=== PATIENT | female | born 1935 | race Caucasian/White ===

== ENCOUNTER → 2016-05-29 | Day surgery (SDC) | payer MEDICARE, OTHER ==
[~2016-05-29] MED LIST: Lactated Ringers 1,000 ML IV SCH; Propofol 200 MG/20 ML SDV IV ONE
[2016-05-29 08:19] VITALS: BP 153/70
--- NOTE | 2016-05-29 13:07 | OR ---
DATE OF OPERATION: 05/29/2016 PREOPERATIVE DIAGNOSIS: POSITIVE COLOGUARD. POSTOPERATIVE DIAGNOSIS: POSITIVE COLOGUARD. SURGEON: Facundo Zamudio MD PROCEDURE: FULL-LENGTH COLONOSCOPY. 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 COMPLICATIONS: None. SPECIMEN: None. FINDINGS: 1. Full-length colonoscopy. 2. Mild sigmoid diverticulosis. RECOMMENDATIONS: Routine follow up with Dr. Plummer. INDICATIONS: The patient has never had a colonoscopy or at least since she has been very young. She took a Cologuard at home and was positive. Dr. Plummer sent her for a colonoscopy. DESCRIPTION OF PROCEDURE: The patient was prepped and draped, placed in a left lateral decubitus position. A lubricated Olympus colonoscope was inserted and easily advanced to the cecum. Direct visualization of the ileocecal valve and appendiceal orifice was accomplished. The bowel prep was excellent. Upon withdrawal of the scope throughout the entire length of the colon, I found no signs of any polyps, mass, ulceration, or bleeding sites. No signs of any cancer. The patient had a few scattered diverticula in the distal sigmoid colon up to the rectosigmoid junction. The rectal vault was unremarkable. Retroflexion of the scope and the rectum showed no anal lesions. Air was then suctioned and the scope was then removed without complications. JUAN M/SHANNAN /[id number]
== END ==
LOC: CC.SDS 06:21
PROVIDERS: ATTEND Family Medicine
DX: K57.30 Diverticulosis of large intestine without perforation or abscess without bleeding (principal); Z88.1 Allergy status to other antibiotic agents
CPT/HCPCS: 36415; 45378; 85610; J2704; J7120; 00810

== ENCOUNTER → 2016-09-28 | Day surgery (SDC) | payer MEDICARE, OTHER ==
[~2016-09-28] MED LIST changes: +Acetaminophen/HYDROcodone 325-5 MG Tab PO PRN; +Bupivacaine 0.25% 10 ML SDV INJECT ONE; +Dexamethasone 4 MG/ML SDV IV ONE; +Doxycycline 100 MG in Sodium Chloride 0.9% 100 ML IV ONE; +Enalaprilat 1.25 MG/ML SDV IVPUSH ONE; +Glycopyrrolate 0.2 MG/ML SDV IVPUSH ONE; +LORazepam 0.5 MG Tab PO PRN; -Lactated Ringers 1,000 ML IV SCH; +Lactated Ringers 1,000 ML ONE; +Lidocaine 2% 20 ML MDV INJECT ONE; +Midazolam 1 MG/ML 2 ML SDV IV ONE; +Morphine 2 MG/ML Syringe ONE; +Morphine 4 MG/ML Syringe IVPUSH PRN; +Neostigmine Methylsulfate 10 MG/10 ML MDV IV ONE; +Ondansetron 4 MG/2 ML SDV IV ONE; +Ondansetron 4 MG/2 ML SDV IVPUSH PRN; +Rocuronium 50 MG/5 ML Vial IV ONE; +fentaNYL 100 MCG/2 ML SDV IV ONE; +hydrALAZINE 25 MG Tab PO ONE
--- NOTE | 2016-09-28 13:54 | PCM.PN ---
- General Info Date of Service: 09/28/16 Admission Dx/Problem (Free Text): Called to PAR patient with persistant HTN in 210/75 range with HR 50 range. Is awake and oriented. Pain medication given in attempt to decrease B/P non responsive HTN persists. Hydalazine 25 mg given po stat with minimal improvement. DIscussed with Pharmacist and advised IV Vasotec 1.25 mg IVSP over 5 mins. Patient awake and ACEVEDO -O2 discontinued. Plexipulse continue. Pain scale 3-range. Functional Status: Reports: Pain Controlled - Review of Systems General: Reports: No Symptoms HEENT: Reports: No Symptoms Pulmonary: Reports: No Symptoms Cardiovascular: Reports: Other (HTN) Gastrointestinal: Reports: Other (Dressing dry and intact) Genitourinary: Reports: No Symptoms Musculoskeletal: Reports: Other (ACEVEDO plexipulse intact) Skin: Reports: No Symptoms Neurological: Reports: No Symptoms Psychiatric: Reports: No Symptoms - Patient Data Vitals - Most Recent: Last Vital Signs Temp 97 C H 09/28/16 12:50 Pulse 48 L 09/28/16 13:00 Resp 16 09/28/16 13:00 BP 215/70 H 09/28/16 13:00 Pulse Ox 100 09/28/16 13:00 Weight - Most Recent: 61.235 kg Lab Results Last 24 Hours: Laboratory Results - last 24 hr 09/28/16 Range/Units 09:57 PT 10.9 (9.7-12.3) SEC INR 1.01 (0.92-1.18) Med Orders - Current: Current Medications Hydrocodone Bitart/Acetaminophen ([place] 325-5 Mg) 2 tab PO Q4H PRN PRN Reason: Pain (moderate 4-6) Enalaprilat (Vasotec Iv) 1.25 mg IVPUSH ONETIME ONE Stop: 09/28/16 13:49 Morphine Sulfate (Morphine) 3 mg IVPUSH Q1H PRN PRN Reason: Pain (severe 7-10) Ondansetron HCl (Zofran) 4 mg IVPUSH Q6H PRN PRN Reason: Nausea/Vomiting Discontinued Medications Bupivacaine HCl (Sensorcaine-Mpf 0.25%) 2 ml INJECT .STK-MED ONE Stop: 09/28/16 11:01 Last Admin: 09/28/16 11:00 Dose: 2 ml Hydralazine HCl (Apresoline) 25 mg PO ONETIME ONE Stop: 09/28/16 13:00 Lactated Ringer's (Ringers, Lactated) Confirm Administered Dose 1,000 mls @ as directed .ROUTE .STK-MED ONE Stop: 09/28/16 09:46 Last Admin: 09/28/16 09:50 Dose: 1,000 ml Doxycycline Hyclate 100 mg/ (Sodium Chloride) 100 mls @ 100 mls/hr IV ONETIME ONE Stop: 09/28/16 10:32 Last Admin: 09/28/16 10:03 Dose: 100 mls/hr Lidocaine HCl (Xylocaine 2%) 8 ml INJECT .STK-MED ONE Stop: 09/28/16 11:01 Last Admin: 09/28/16 11:00 Dose: 8 ml Morphine Sulfate (Morphine) Confirm Administered Dose 4 mg .ROUTE .STK-MED ONE Stop: 09/28/16 12:33 Last Admin: 09/28/16 12:43 Dose: 3 mg - Exam Quality Assessment: Supplemental Oxygen (Discontinued saturations 100%) General: Alert, Cooperative, No Acute Distress, Sedated HEENT: Pupils Equal, Pupils Reactive, EOMI Neck: Supple Lungs: Clear to Auscultation, Normal Respiratory Effort Cardiovascular: Regular Rhythm, Bradycardia, Other (HTN) GI/Abdominal Exam: Soft (Female) Exam: Deferred Back Exam: Normal Inspection Extremities: Normal Inspection Peripheral Pulses: 2+: Carotid (L), Carotid (R), Brachial (L), Brachial (R), Radial (L), Radial (R), Femoral (L), Femoral (R), Dorsalis Pedis (L), Dorsalis Pedis (R) Skin: Warm, Dry, Intact Wound/Incisions: Dressing Dry and Intact, No Drainage. No: Erythema Neurological: No New Focal Deficit Psy/Mental Status: Alert, Normal Affect - Problem List Review Problem List Initiated/Reviewed/Updated: Yes - My Orders Last 24 Hours: My Active Orders 09/28/16 13:48 Enalaprilat [Vasotec IV] 1.25 mg IVPUSH ONETIME ONE - Assessment Assessment:: HTN-Bradycardia Post operative Cholecystectomy - Plan Plan:: Close observation. Will monitor B/P closely. Repeat Vasotec 1.125 mg IV in 1 hour if HTN persists. notified by PAR.
[2016-09-29 07:39] VITALS: BP 163/82
--- NOTE | 2016-09-29 08:46 | OR ---
DATE OF OPERATION: 09/28/2016 PREOPERATIVE DIAGNOSIS: CHRONIC CHOLECYSTITIS WITH CHOLELITHIASIS. POSTOPERATIVE DIAGNOSIS: CHRONIC CHOLECYSTITIS WITH CHOLELITHIASIS. SURGEON: Sami Ricks MD PROCEDURE: LAPAROSCOPIC CHOLECYSTECTOMY. ANESTHESIA: General. DESCRIPTION OF PROCEDURE: After the patient was anesthetized satisfactorily, the patient's abdomen was prepped with iodoform. The patient was given sterile drapes. A small skin incision was made in the midline. It was carried down through skin and subcutaneous tissue and down through deep fascia. Deep fascia and peritoneum were opened. An 11 mm blunt trocar was introduced. CO2 gas was insufflated. Under direct camera vision. Another 11 mm trocar was introduced in the subxiphoid space and a 5 mm in the right upper quadrant. Gallbladder was held in position. There were quite a few adhesions which were taken down. Then dissection was done. Both cystic duct and cystic artery were exposed. Junction of the cystic duct with common bile duct and gallbladder was exposed. Both of them were clipped and divided. Then gallbladder was taken off its bed with help of hook cautery and removed from the peritoneal cavity using Endopouch. Hemostasis was satisfactory. Then CO2 gas was desufflated out. Deep fascia was closed with zero Ethibond running sutures. Skin was closed with ruby. The patient was given sterile dressing. She tolerated the procedure well and left the operating room in satisfactory condition. SHIRLEY/SHANNAN /[id number]
== END ==
LOC: CC.SDS 09:13
PROVIDERS: ATTEND Surgery
DX: K81.1 Chronic cholecystitis (principal); F41.9 Anxiety disorder, unspecified; I10 Essential (primary) hypertension; E78.5 Hyperlipidemia, unspecified; E55.9 Vitamin D deficiency, unspecified; Z88.1 Allergy status to other antibiotic agents; Z88.8 Allergy status to other drugs, medicaments and biological substances; Z79.899 Other long term (current) drug therapy; Z79.01 Long term (current) use of anticoagulants; Z98.890 Other specified postprocedural states
CPT/HCPCS: 36415; 47562; 85610; A9270; J1100; J2250; J2270; J2405; J2704; J2710; J3010; J7050; J7120; 00790; 88304

== ENCOUNTER 2017-07-14 16:20 | Observation (INO) | payer MEDICARE, OTHER ==
[2017-07-14] MEDS ORDERED: Sodium Chloride 0.9% 10 ML Syringe FLUSH PRN (16:35)
[2017-07-14 17:02] LABS: O2 DELIVERY DEVICE ROOM AIR
[2017-07-14 17:05] LABS: BICARBONATE,ARTERIAL 28.4 mm/L (22.0-26.0); O2 SATURATION ARTERIAL 96 % (95-98); PCO2 ARTERIAL 40 mm/Hg0 (35-45); PO2 ARTERIAL 77 mm/Hg (80-100)
[2017-07-14 17:29] LABS: CHLORIDE,CL 103 mEq/L (98-106); SODIUM,NA 143 mEq/L (136-145)
[2017-07-14] MEDS ORDERED: LORazepam 0.5 MG Tab PO PRN (17:45)
[2017-07-14] MEDS ORDERED: Warfarin 2.5 MG Tab PO SCH (17:45)
[2017-07-14] MEDS: Propranolol 10 MG Tab PO SCH (19:44)
[2017-07-14] MEDS ORDERED: Temazepam 15 MG Cap PO ONE (23:44)
[2017-07-15] MEDS ORDERED: [UNRECOGNIZED DRUG - REMARK] PO SCH (08:00)
[2017-07-15] MEDS ORDERED: Warfarin 5 MG Tab PO SCH (08:00)
[2017-07-15] MEDS ORDERED: [UNRECOGNIZED DRUG - REMARK] NASBOTH SCH (08:00)
[2017-07-15] MEDS ORDERED: Hydrochlorothiazide 25 MG Tab PO SCH (08:00)
[2017-07-15] MEDS: Propranolol 10 MG Tab PO SCH (08:14)
--- NOTE | 2017-07-15 09:06 | PCM.PN ---
- General Info Date of Service: 07/15/17 Functional Status: Reports: Pain Controlled, Tolerating Diet, Ambulating, Urinating. Denies: New Symptoms - Patient Data Vitals - Most Recent: Last Vital Signs Temp 96.0 F 07/15/17 07:20 Pulse 74 07/15/17 07:20 Resp 16 07/15/17 07:20 BP 139/73 07/15/17 07:20 Pulse Ox 100 07/15/17 07:20 Weight - Most Recent: 136 lb 14.513 oz Lab Results Last 24 Hours: Laboratory Results - last 24 hr 07/14/17 07/14/17 07/14/17 Range/Units 16:35 16:45 16:45 WBC 5.7 (5.0-10.0) 10^3/uL RBC 3.97 L (4.00-5.50) 10^6/uL Hgb 11.6 L (12.0-16.0) g/dL Hct 36.7 L (37.0-47.0) % MCV 92.4 (82.0-94.0) fL MCH 29.2 (27.0-32.0) pg MCHC 31.6 L (33.0-38.0) g/dL RDW Coeff of Michael 14.7 (11.0-15.0) % Plt Count 319 (150-400) 10^3/uL Add Manual Diff Yes Neutrophils % (Manual) 60 (35-85) % Band Neutrophils % 9 H (0-5) % Lymphocytes % (Manual) 22 (21-55) % Monocytes % (Manual) 9 (2-12) % Absolute Neutrophils 3.93 (1.80-7.00) 10^3/uL Lymphocytes # (Manual) 1.25 (1.00-4.80) 10^3/uL Monocytes # (Manual) 0.51 (0.00-0.80) 10^3/uL PT (9.7-12.3) SEC INR (0.92-1.18) D-Dimer, Quantitative 0.41 (0.00-0.50) ABG pH (7.35-7.45) ABG pCO2 (35-45) mm/Hg0 ABG pO2 (80-100) mm/Hg ABG HCO3 (22.0-26.0) mm/L ABG O2 Saturation (95-98) % ABG Base Excess (-2.0-3.0) O2 Delivery Device Sodium (136-145) mEq/L Potassium (3.5-5.0) mEq/L Chloride (98-106) mEq/L Carbon Dioxide (21-32) mmol/L BUN (7-18) mg/dL Creatinine (0.6-1.0) mg/dL Est Cr Clr Drug Dosing mL/min Estimated GFR (MDRD) (>=60) mL/min Glucose (75-99) mg/dL Calcium (8.4-10.1) mg/dL Magnesium (1.8-2.4) mg/dL Total Bilirubin (0.0-1.0) mg/dL AST (15-37) U/L ALT (12-78) U/L Alkaline Phosphatase (46-116) U/L Creatine Kinase (21-215) U/L Troponin I (0.00-0.06) ng/mL NT-Pro-B Natriuret Pep (0-1000) pg/mL Total Protein (6.4-8.2) g/dL Albumin (3.4-5.0) g/dL Free T4 (0.8-1.6) ng/dL TSH, Ultra Sensitive (0.36-5.60) uIU/mL Urine Color Dark yellow (YELLOW) Urine Appearance Clear (CLEAR) Urine pH 6.5 (4.5-8.0) Ur Specific [place] 1.020 (1.003-1.020) Urine Protein Negative (NEGATIVE) mg/dL Urine Glucose (UA) Negative (NEGATIVE) mg/dL Urine Ketones Trace H (NEGATIVE) mg/dL Urine Occult Blood Negative (NEGATIVE) Urine Nitrite Negative (NEGATIVE) Urine Bilirubin Negative (NEGATIVE) Urine Urobilinogen 0.2 (0.2-1.0) EU/dL Ur Leukocyte Esterase Small H (NEGATIVE) Urine RBC Not seen (0-5) /HPF Urine WBC 0-5 (0-5) /HPF Ur Squamous Epith Cells Few H (NOT SEEN) /HPF Amorphous Sediment Few H (NOT SEEN) /HPF 07/14/17 07/14/17 07/14/17 Range/Units 16:45 16:45 16:55 WBC (5.0-10.0) 10^3/uL RBC (4.00-5.50) 10^6/uL Hgb (12.0-16.0) g/dL Hct (37.0-47.0) % MCV (82.0-94.0) fL MCH (27.0-32.0) pg MCHC (33.0-38.0) g/dL RDW Coeff of Michael (11.0-15.0) % Plt Count (150-400) 10^3/uL Add Manual Diff Neutrophils % (Manual) (35-85) % Band Neutrophils % (0-5) % Lymphocytes % (Manual) (21-55) % Monocytes % (Manual) (2-12) % Absolute Neutrophils (1.80-7.00) 10^3/uL Lymphocytes # (Manual) (1.00-4.80) 10^3/uL Monocytes # (Manual) (0.00-0.80) 10^3/uL PT 14.8 H (9.7-12.3) SEC INR 1.46 H (0.92-1.18) D-Dimer, Quantitative (0.00-0.50) ABG pH 7.46 H (7.35-7.45) ABG pCO2 40 (35-45) mm/Hg0 ABG pO2 77 L (80-100) mm/Hg ABG HCO3 28.4 H (22.0-26.0) mm/L ABG O2 Saturation 96 (95-98) % ABG Base Excess 5.0 H (-2.0-3.0) O2 Delivery Device Room air Sodium 143 (136-145) mEq/L Potassium 3.3 L (3.5-5.0) mEq/L Chloride 103 (98-106) mEq/L Carbon Dioxide 30 (21-32) mmol/L BUN 23 H (7-18) mg/dL Creatinine 1.0 (0.6-1.0) mg/dL Est Cr Clr Drug Dosing 39.39 mL/min Estimated GFR (MDRD) 53 L (>=60) mL/min Glucose 107 H (75-99) mg/dL Calcium 9.2 (8.4-10.1) mg/dL Magnesium 2.0 (1.8-2.4) mg/dL Total Bilirubin 0.9 (0.0-1.0) mg/dL AST 24 (15-37) U/L ALT 29 (12-78) U/L Alkaline Phosphatase 168 H (46-116) U/L Creatine Kinase 107 (21-215) U/L Troponin I < 0.017 (0.00-0.06) ng/mL NT-Pro-B Natriuret Pep 1261 H (0-1000) pg/mL Total Protein 7.2 (6.4-8.2) g/dL Albumin 3.6 (3.4-5.0) g/dL Free T4 1.2 (0.8-1.6) ng/dL TSH, Ultra Sensitive 4.25 (0.36-5.60) uIU/mL Urine Color (YELLOW) Urine Appearance (CLEAR) Urine pH (4.5-8.0) Ur Specific [place] (1.003-1.020) Urine Protein (NEGATIVE) mg/dL Urine Glucose (UA) (NEGATIVE) mg/dL Urine Ketones (NEGATIVE) mg/dL Urine Occult Blood (NEGATIVE) Urine Nitrite (NEGATIVE) Urine Bilirubin (NEGATIVE) Urine Urobilinogen (0.2-1.0) EU/dL Ur Leukocyte Esterase (NEGATIVE) Urine RBC (0-5) /HPF Urine WBC (0-5) /HPF Ur Squamous Epith Cells (NOT SEEN) /HPF Amorphous Sediment (NOT SEEN) /HPF 07/15/17 07/15/17 Range/Units 06:33 06:33 WBC (5.0-10.0) 10^3/uL RBC (4.00-5.50) 10^6/uL Hgb (12.0-16.0) g/dL Hct (37.0-47.0) % MCV (82.0-94.0) fL MCH (27.0-32.0) pg MCHC (33.0-38.0) g/dL RDW Coeff of Michael (11.0-15.0) % Plt Count (150-400) 10^3/uL Add Manual Diff Neutrophils % (Manual) (35-85) % Band Neutrophils % (0-5) % Lymphocytes % (Manual) (21-55) % Monocytes % (Manual) (2-12) % Absolute Neutrophils (1.80-7.00) 10^3/uL Lymphocytes # (Manual) (1.00-4.80) 10^3/uL Monocytes # (Manual) (0.00-0.80) 10^3/uL PT 15.8 H (9.7-12.3) SEC INR 1.57 H (0.92-1.18) D-Dimer, Quantitative (0.00-0.50) ABG pH (7.35-7.45) ABG pCO2 (35-45) mm/Hg0 ABG pO2 (80-100) mm/Hg ABG HCO3 (22.0-26.0) mm/L ABG O2 Saturation (95-98) % ABG Base Excess (-2.0-3.0) O2 Delivery Device Sodium (136-145) mEq/L Potassium (3.5-5.0) mEq/L Chloride (98-106) mEq/L Carbon Dioxide (21-32) mmol/L BUN (7-18) mg/dL Creatinine (0.6-1.0) mg/dL Est Cr Clr Drug Dosing mL/min Estimated GFR (MDRD) (>=60) mL/min Glucose (75-99) mg/dL Calcium (8.4-10.1) mg/dL Magnesium (1.8-2.4) mg/dL Total Bilirubin (0.0-1.0) mg/dL AST (15-37) U/L ALT (12-78) U/L Alkaline Phosphatase (46-116) U/L Creatine Kinase 76 (21-215) U/L Troponin I < 0.017 (0.00-0.06) ng/mL NT-Pro-B Natriuret Pep (0-1000) pg/mL Total Protein (6.4-8.2) g/dL Albumin (3.4-5.0) g/dL Free T4 (0.8-1.6) ng/dL TSH, Ultra Sensitive (0.36-5.60) uIU/mL Urine Color (YELLOW) Urine Appearance (CLEAR) Urine pH (4.5-8.0) Ur Specific [place] (1.003-1.020) Urine Protein (NEGATIVE) mg/dL Urine Glucose (UA) (NEGATIVE) mg/dL Urine Ketones (NEGATIVE) mg/dL Urine Occult Blood (NEGATIVE) Urine Nitrite (NEGATIVE) Urine Bilirubin (NEGATIVE) Urine Urobilinogen (0.2-1.0) EU/dL Ur Leukocyte Esterase (NEGATIVE) Urine RBC (0-5) /HPF Urine WBC (0-5) /HPF Ur Squamous Epith Cells (NOT SEEN) /HPF Amorphous Sediment (NOT SEEN) /HPF Med Orders - Current: Current Medications Hydrochlorothiazide (Hydrochlorothiazide) 25 mg PO DAILY [facility] Last Admin: 07/15/17 08:13 Dose: Not Given Lorazepam (Ativan) 0.5 mg PO Q6H PRN PRN Reason: ANXIETY Non-Form (Famciclovir 500 Mg) 500 mg PO DAILY [facility] Non-Form Ipratropium 0.06% Nasal [place] 0 sprays NASBOTH DAILY [facility] Propranolol HCl (Inderal) 40 mg PO BID [facility] Last Admin: 07/15/17 08:14 Dose: Not Given Sodium Chloride (Saline Flush) 10 ml FLUSH ASDIRECTED PRN PRN Reason: Keep Vein Open Warfarin Sodium (Coumadin) 2.5 mg PO [place] [facility] Last Admin: 07/14/17 18:02 Dose: Not Given Discontinued Medications Temazepam (Restoril) 15 mg PO ONETIME ONE Stop: 07/14/17 23:45 Last Admin: 07/15/17 00:04 Dose: 15 mg Warfarin Sodium (Coumadin) 2.5 mg PO DAILY [facility] - My Orders Last 24 Hours: My Active Orders 07/15/17 08:22 Echo Comp wo Cont [US] Routine
[2017-07-15 11:41] VITALS: BP 155/72
--- NOTE | 2017-07-15 16:10 | PCM.DCSUM1 ---
Discharge Summary - Hospital Course HPI Initial Comments: Citlalli is a 81 year old female who was admitted - Discharge Data Discharge Date: 07/15/17 Discharge Disposition: Home, Self-Care 01 Condition: Good - Discharge Diagnosis/Problem(s) (1) Atypical chest pain SNOMED Code(s): 354221825 ICD Code: R07.89 - OTHER CHEST PAIN Status: Acute Current Visit: Yes (2) Dyspnea on exertion SNOMED Code(s): 60049280 ICD Code: R06.09 - OTHER FORMS OF DYSPNEA Status: Acute Current Visit: Yes - Patient Instructions Diet: Heart Healthy Diet, Usual Diet as Tolerated Activity: As Tolerated - Discharge Plan Home Medications: Home Meds Famciclovir 500 mg PO DAILY 03/04/15 [History] Hydrochlorothiazide 25 mg PO DAILY 03/04/15 [History] Ipratropium [Atrovent 0.06% Nasal [place]] 2 sprays NASBOTH DAILY 03/04/15 [ History] LORazepam 0.5 mg PO Q6H PRN 03/04/15 [History] Naproxen Sodium [Aleve] 220 mg PO BID PRN 03/04/15 [History] Propranolol [Inderal] 40 mg PO BID 03/04/15 [History] Calcium Carbonate/Vitamin D3 [Calcium 600-Vit D3 400 Tablet] 1 each PO DAILY 02/06 [History] Cholecalciferol (Vitamin D3) [Vitamin D3] 5,000 unit PO DAILY 05/28/16 [History] Warfarin [Coumadin] 2.5 mg PO DAILY 05/28/16 [History] diphenhydrAMINE [Benadryl] 25 mg PO DAILY PRN 05/28/16 [History] Referrals: Jean Plummer MD [Primary Care Provider] - - Discharge Summary/Plan Comment DC Time >30 min.: No - Patient Data Vitals - Most Recent: Last Vital Signs Temp 96.5 F 07/15/17 11:39 Pulse 69 07/15/17 11:39 Resp 20 07/15/17 11:39 BP 155/72 H 07/15/17 11:39 Pulse Ox 100 07/15/17 11:39 Weight - Most Recent: 136 lb 14.513 oz Lab Results - Last 24 hrs: Laboratory Results - last 24 hr 07/14/17 07/14/17 07/14/17 Range/Units 16:35 16:45 16:45 WBC 5.7 (5.0-10.0) 10^3/uL RBC 3.97 L (4.00-5.50) 10^6/uL Hgb 11.6 L (12.0-16.0) g/dL Hct 36.7 L (37.0-47.0) % MCV 92.4 (82.0-94.0) fL MCH 29.2 (27.0-32.0) pg MCHC 31.6 L (33.0-38.0) g/dL RDW Coeff of Michael 14.7 (11.0-15.0) % Plt Count 319 (150-400) 10^3/uL Add Manual Diff Yes Neutrophils % (Manual) 60 (35-85) % Band Neutrophils % 9 H (0-5) % Lymphocytes % (Manual) 22 (21-55) % Monocytes % (Manual) 9 (2-12) % Absolute Neutrophils 3.93 (1.80-7.00) 10^3/uL Lymphocytes # (Manual) 1.25 (1.00-4.80) 10^3/uL Monocytes # (Manual) 0.51 (0.00-0.80) 10^3/uL PT (9.7-12.3) SEC INR (0.92-1.18) D-Dimer, Quantitative 0.41 (0.00-0.50) ABG pH (7.35-7.45) ABG pCO2 (35-45) mm/Hg0 ABG pO2 (80-100) mm/Hg ABG HCO3 (22.0-26.0) mm/L ABG O2 Saturation (95-98) % ABG Base Excess (-2.0-3.0) O2 Delivery Device Sodium (136-145) mEq/L Potassium (3.5-5.0) mEq/L Chloride (98-106) mEq/L Carbon Dioxide (21-32) mmol/L BUN (7-18) mg/dL Creatinine (0.6-1.0) mg/dL Est Cr Clr Drug Dosing mL/min Estimated GFR (MDRD) (>=60) mL/min Glucose (75-99) mg/dL Calcium (8.4-10.1) mg/dL Magnesium (1.8-2.4) mg/dL Total Bilirubin (0.0-1.0) mg/dL AST (15-37) U/L ALT (12-78) U/L Alkaline Phosphatase (46-116) U/L Creatine Kinase (21-215) U/L Troponin I (0.00-0.06) ng/mL NT-Pro-B Natriuret Pep (0-1000) pg/mL Total Protein (6.4-8.2) g/dL Albumin (3.4-5.0) g/dL Free T4 (0.8-1.6) ng/dL TSH, Ultra Sensitive (0.36-5.60) uIU/mL Urine Color Dark yellow (YELLOW) Urine Appearance Clear (CLEAR) Urine pH 6.5 (4.5-8.0) Ur Specific [place] 1.020 (1.003-1.020) Urine Protein Negative (NEGATIVE) mg/dL Urine Glucose (UA) Negative (NEGATIVE) mg/dL Urine Ketones Trace H (NEGATIVE) mg/dL Urine Occult Blood Negative (NEGATIVE) Urine Nitrite Negative (NEGATIVE) Urine Bilirubin Negative (NEGATIVE) Urine Urobilinogen 0.2 (0.2-1.0) EU/dL Ur Leukocyte Esterase Small H (NEGATIVE) Urine RBC Not seen (0-5) /HPF Urine WBC 0-5 (0-5) /HPF Ur Squamous Epith Cells Few H (NOT SEEN) /HPF Amorphous Sediment Few H (NOT SEEN) /HPF 07/14/17 07/14/17 07/14/17 Range/Units 16:45 16:45 16:55 WBC (5.0-10.0) 10^3/uL RBC (4.00-5.50) 10^6/uL Hgb (12.0-16.0) g/dL Hct (37.0-47.0) % MCV (82.0-94.0) fL MCH (27.0-32.0) pg MCHC (33.0-38.0) g/dL RDW Coeff of Michael (11.0-15.0) % Plt Count (150-400) 10^3/uL Add Manual Diff Neutrophils % (Manual) (35-85) % Band Neutrophils % (0-5) % Lymphocytes % (Manual) (21-55) % Monocytes % (Manual) (2-12) % Absolute Neutrophils (1.80-7.00) 10^3/uL Lymphocytes # (Manual) (1.00-4.80) 10^3/uL Monocytes # (Manual) (0.00-0.80) 10^3/uL PT 14.8 H (9.7-12.3) SEC INR 1.46 H (0.92-1.18) D-Dimer, Quantitative (0.00-0.50) ABG pH 7.46 H (7.35-7.45) ABG pCO2 40 (35-45) mm/Hg0 ABG pO2 77 L (80-100) mm/Hg ABG HCO3 28.4 H (22.0-26.0) mm/L ABG O2 Saturation 96 (95-98) % ABG Base Excess 5.0 H (-2.0-3.0) O2 Delivery Device Room air Sodium 143 (136-145) mEq/L Potassium 3.3 L (3.5-5.0) mEq/L Chloride 103 (98-106) mEq/L Carbon Dioxide 30 (21-32) mmol/L BUN 23 H (7-18) mg/dL Creatinine 1.0 (0.6-1.0) mg/dL Est Cr Clr Drug Dosing 39.39 mL/min Estimated GFR (MDRD) 53 L (>=60) mL/min Glucose 107 H (75-99) mg/dL Calcium 9.2 (8.4-10.1) mg/dL Magnesium 2.0 (1.8-2.4) mg/dL Total Bilirubin 0.9 (0.0-1.0) mg/dL AST 24 (15-37) U/L ALT 29 (12-78) U/L Alkaline Phosphatase 168 H (46-116) U/L Creatine Kinase 107 (21-215) U/L Troponin I < 0.017 (0.00-0.06) ng/mL NT-Pro-B Natriuret Pep 1261 H (0-1000) pg/mL Total Protein 7.2 (6.4-8.2) g/dL Albumin 3.6 (3.4-5.0) g/dL Free T4 1.2 (0.8-1.6) ng/dL TSH, Ultra Sensitive 4.25 (0.36-5.60) uIU/mL Urine Color (YELLOW) Urine Appearance (CLEAR) Urine pH (4.5-8.0) Ur Specific [place] (1.003-1.020) Urine Protein (NEGATIVE) mg/dL Urine Glucose (UA) (NEGATIVE) mg/dL Urine Ketones (NEGATIVE) mg/dL Urine Occult Blood (NEGATIVE) Urine Nitrite (NEGATIVE) Urine Bilirubin (NEGATIVE) Urine Urobilinogen (0.2-1.0) EU/dL Ur Leukocyte Esterase (NEGATIVE) Urine RBC (0-5) /HPF Urine WBC (0-5) /HPF Ur Squamous Epith Cells (NOT SEEN) /HPF Amorphous Sediment (NOT SEEN) /HPF 07/15/17 07/15/17 Range/Units 06:33 06:33 WBC (5.0-10.0) 10^3/uL RBC (4.00-5.50) 10^6/uL Hgb (12.0-16.0) g/dL Hct (37.0-47.0) % MCV (82.0-94.0) fL MCH (27.0-32.0) pg MCHC (33.0-38.0) g/dL RDW Coeff of Michael (11.0-15.0) % Plt Count (150-400) 10^3/uL Add Manual Diff Neutrophils % (Manual) (35-85) % Band Neutrophils % (0-5) % Lymphocytes % (Manual) (21-55) % Monocytes % (Manual) (2-12) % Absolute Neutrophils (1.80-7.00) 10^3/uL Lymphocytes # (Manual) (1.00-4.80) 10^3/uL Monocytes # (Manual) (0.00-0.80) 10^3/uL PT 15.8 H (9.7-12.3) SEC INR 1.57 H (0.92-1.18) D-Dimer, Quantitative (0.00-0.50) ABG pH (7.35-7.45) ABG pCO2 (35-45) mm/Hg0 ABG pO2 (80-100) mm/Hg ABG HCO3 (22.0-26.0) mm/L ABG O2 Saturation (95-98) % ABG Base Excess (-2.0-3.0) O2 Delivery Device Sodium (136-145) mEq/L Potassium (3.5-5.0) mEq/L Chloride (98-106) mEq/L Carbon Dioxide (21-32) mmol/L BUN (7-18) mg/dL Creatinine (0.6-1.0) mg/dL Est Cr Clr Drug Dosing mL/min Estimated GFR (MDRD) (>=60) mL/min Glucose (75-99) mg/dL Calcium (8.4-10.1) mg/dL Magnesium (1.8-2.4) mg/dL Total Bilirubin (0.0-1.0) mg/dL AST (15-37) U/L ALT (12-78) U/L Alkaline Phosphatase (46-116) U/L Creatine Kinase 76 (21-215) U/L Troponin I < 0.017 (0.00-0.06) ng/mL NT-Pro-B Natriuret Pep (0-1000) pg/mL Total Protein (6.4-8.2) g/dL Albumin (3.4-5.0) g/dL Free T4 (0.8-1.6) ng/dL TSH, Ultra Sensitive (0.36-5.60) uIU/mL Urine Color (YELLOW) Urine Appearance (CLEAR) Urine pH (4.5-8.0) Ur Specific [place] (1.003-1.020) Urine Protein (NEGATIVE) mg/dL Urine Glucose (UA) (NEGATIVE) mg/dL Urine Ketones (NEGATIVE) mg/dL Urine Occult Blood (NEGATIVE) Urine Nitrite (NEGATIVE) Urine Bilirubin (NEGATIVE) Urine Urobilinogen (0.2-1.0) EU/dL Ur Leukocyte Esterase (NEGATIVE) Urine RBC (0-5) /HPF Urine WBC (0-5) /HPF Ur Squamous Epith Cells (NOT SEEN) /HPF Amorphous Sediment (NOT SEEN) /HPF Med Orders - Current: Current Medications Hydrochlorothiazide (Hydrochlorothiazide) 25 mg PO DAILY [facility] Last Admin: 07/15/17 08:13 Dose: Not Given Lorazepam (Ativan) 0.5 mg PO Q6H PRN PRN Reason: ANXIETY Non-Form (Famciclovir 500 Mg) 500 mg PO DAILY [facility] Non-Form Ipratropium 0.06% Nasal [place] 0 sprays NASBOTH DAILY [facility] Propranolol HCl (Inderal) 40 mg PO BID [facility] Last Admin: 07/15/17 08:14 Dose: Not Given Sodium Chloride (Saline Flush) 10 ml FLUSH ASDIRECTED PRN PRN Reason: Keep Vein Open Warfarin Sodium (Coumadin) 2.5 mg PO [place] [facility] Last Admin: 07/14/17 18:02 Dose: Not Given Discontinued Medications Regadenoson (Lexiscan) 0.4 mg IVPUSH ONETIME ONE Stop: 07/15/17 12:58 Last Admin: 07/15/17 13:37 Dose: Not Given Regadenoson (Lexiscan) 0.4 mg IVPUSH ONETIME ONE Stop: 07/15/17 14:26 Last Admin: 07/15/17 15:22 Dose: Not Given Temazepam (Restoril) 15 mg PO ONETIME ONE Stop: 07/14/17 23:45 Last Admin: 07/15/17 00:04 Dose: 15 mg Warfarin Sodium (Coumadin) 2.5 mg PO DAILY [facility]
--- NOTE | 2017-07-16 08:21 | OR ---
DATE OF OPERATION: 07/15/2017 The patient was seen for Lexiscan, sent by Dr. Plummer for chest pain. Lexiscan was administered in the usual fashion over a 2-minute time period. The patient had a max heart rate of 118, max BP of 140/80. There were some occasional PACs during the infusion phase. Otherwise, no arrhythmias. She has flat ST segments in the lateral leads V4, 5, and 6 which were only minimally depressed and came back to baseline systematically. Negative telemetry portion of her treadmill. Cardiolite tracer was given appropriately. Images will be forthcoming. JUAN M/SHANNAN /[id number]
== END 2017-07-15 16:30 | disposition home or self-care (01) ==
LOC: INTOOBSV 16:20 → CC.MS 16:20 → UNDOADMOB 16:20 → CC.MS 16:35
PROVIDERS: ADMIT General Practice; ATTEND General Practice
DX: R07.89 Other chest pain (principal); R06.09 Other forms of dyspnea; M19.90 Unspecified osteoarthritis, unspecified site; I10 Essential (primary) hypertension; Z79.899 Other long term (current) drug therapy; Z79.01 Long term (current) use of anticoagulants; Z88.1 Allergy status to other antibiotic agents; Z88.8 Allergy status to other drugs, medicaments and biological substances; Z79.82 Long term (current) use of aspirin; Z86.711 Personal history of pulmonary embolism
CPT/HCPCS: 36415; 36600; 71046; 78452; 80053; 81001; 82550; 82803; 83735; 83880; 84439; 84443; 84484; 85025; 85379; 85610; 93005; 93017; 93306; A9270; A9500; G0378